=== PATIENT | male | born 1955 | race Caucasian/White ===

== ENCOUNTER 2016-09-21 16:44 | Inpatient (IN) | payer OTHER ==
--- NOTE | 2016-09-21 16:48 | EDPHY ---
H & P Time Seen by Provider: 09/21/16 16:41 HPI/ROS: CHIEF COMPLAINT: Unresponsive HISTORY OF PRESENT ILLNESS: This patient is a 60-year-old male who presents emergently to the Emergency Department via EMS after his family was unable to wake him up from sleep this morning. Per his partner at bedside, he was experiencing worsening dyspnea throughout last night, and she had trouble waking him up from sleep. She last spoke to him at 200 when he went outside to smoke a cigarette. When he returned inside, he had a syncopal episode causing him to fall, hitting his posterior scalp on the floor. He has apparently had intermittent syncopal episodes over the past few weeks. Today, he has been sleeping all day, and she has been unable to wake him. He did have recurrent episodes of diarrhea last night and one episode of vomiting today just before EMS arrival. He has no significant pertinent medical history. No anticoagulant use. REVIEW OF SYSTEMS: A 10 point review of systems was performed and is negative with the exception of the elements mentioned in the history of present illness. ROS and history obtained from the patient's partner at bedside. The patient is not able to provide history secondary to his unresponsive condition. * Source: Family, EMS - Medical/Surgical History PMH: Psoriasis. - Social History Smoking Status: Current every day smoker Additional Social History: Smokes tobacco. Alcohol abuse. Pattie, patient's partner of 32 years, at bedside. - Physical Exam Exam: General: The patient is breathing on his own and protecting his airway. He exhibits extensor posturing with painful stimuli or sternal rub. [place] Coma Score is 4. Head: Normocephalic/atraumatic. No Boggs's sign. No raccoon eyes. Neck: Trachea is midline. Eyes: Pupillary asymmetry; left pupil is ovoid in shape, 4 mm, and larger than right pupil which is round and 3 mm. Neither are reactive. No subconjunctival hemorrhage. Ears nose and throat: No hemotympanum. Nares are patent and without clotted nasal blood. No apparent dental injury or malocclusion. Airway is patent. Lungs: No crepitus. Breath sounds are equal and audible bilaterally. No wheezes , rales, or rhonchi. Cardiac: Heart has regular rate and rhythm without murmur, rub, or gallop. Abdomen: Soft, nondistended. Bowel sounds are present. Genital: No blood at the urethral meatus. Rectal: Blood on rectal thermometer. Temperature 35.1. Skin: No ecchymosis. Healing abrasions bilaterally to both anterior lower extremities. Skin is warm and dry. Psoriatic plaques on his scalp. Extremities: Pelvis is stable. Pulses: 2+ femoral and dorsalis pedis pulses bilaterally. Neuro: GCS 4. Positive gag reflex. Pupils as above. No gaze deviation. No eye opening. No verbalization. Extensor posturing with sternal rub. Constitutional: Initial Vital Signs Heart Rate 106 H 09/21/16 16:44 Respiratory Rate 14 09/21/16 16:44 Blood Pressure 120/98 H 09/21/16 16:44 O2 Sat (%) 99 09/21/16 16:44 O2 Delivery Mode Ventilator O2 (L/minute) 4 Allergies/Adverse Reactions: ibuprofen Allergy (Severe, Verified 06/19/13 16:12) Itching Home Medications: Medication Instructions Recorded Aspirin [Aspirin 325 mg (OTC)] 325 mg PO AD PRN 06/19/13 Multivitamins [Tab-A-Trevin] 1 each PO DAILY 06/19/13 Oxycodone Ir [Oxy Ir 5 mg (RX)] 3 tab PO Q3H PRN 06/19/13 Naproxen Sodium [Aleve] 220 mg PO BID PRN 06/21/13 Medical Decision Making - Diagnostics Imaging Results: Imaging Impressions Cervical Spine CT 09/21/16 16:54 Impression: No acute posttraumatic abnormality identified. Final concordant results called to Dr. Radha Riley at 6:08 PM Final results are concordant with the initial interpretation. General information for patients regarding this examination can be found at [email or web address]. If you have questions or comments about this report, please contact me at [phone] (hospital) or [phone] (cell). Chest X-Ray 09/21/16 16:54 Impression: Chest negative for acute posttraumatic sequela. Head CT 09/21/16 16:54 Impression: Bilateral parenchymal subarachnoid and subdural hematomas. Final results 5:18 PM are concordant with the initial interpretation given to Radha Riley with the patient just leaving the CT table at 5:05 pm. General information for patients regarding this examination can be found at [email or web address]. If you have questions or comments about this report, please contact me at [phone] (hospital) or [phone] (cell). Abdomen CT 09/21/16 17:14 Impression: No acute posttraumatic abnormality identified. 2. CT Scan of the Abdomen and Pelvis (With Contrast, extended study) , 5:57 PM Clinical Indications: Trauma. Technique: 90 mL of Isovue 300 were given intravenously by machine power injection. Multidetector helical CT imaging was performed from the diaphragm to the symphysis pubis or in the arterial phase and then during a delayed phase to assess for hemorrhage. Dose reduction techniques were utilized. Findings: Abdomen: There is no NG tube in the stomach. There is diffuse fatty infiltration of the liver. The liver and spleen are normal in size without evidence of laceration or subcapsular hematoma formation. The gallbladder and pancreas look normal. The kidneys do not show evidence for laceration, cortical contusion, or obstruction. There is no free air or free fluid. Pelvis: There is a Turner catheter in the urinary bladder. The urinary bladder is otherwise unremarkable. No free fluid in the pelvis. Bowel loops are normal. Bone window evaluation: No acute fracture is identified. There is diffuse sclerosis of the right femoral head with early central collapse, consistent with ischemic necrosis. There is sclerosis upper left femoral head, without collapse. There is bilateral L5 spondylolysis with mild spondylolisthesis and severe L5-S1 disk space degeneration. Impression: No acute posttraumatic abnormality identified in the abdomen or pelvis. Results of all studies called to Dr. Garcia could been at 6:17 PM. Final results are concordant with the preliminary interpretation. General information for patients regarding this examination can be found at [email or web address]. If you have questions or comments about this report, please contact me at [phone] (hospital) or [phone] (cell). Chest CT 09/21/16 17:14 Impression: No acute posttraumatic abnormality identified. 2. CT Scan of the Abdomen and Pelvis (With Contrast, extended study) , 5:57 PM Clinical Indications: Trauma. Technique: 90 mL of Isovue 300 were given intravenously by machine power injection. Multidetector helical CT imaging was performed from the diaphragm to the symphysis pubis or in the arterial phase and then during a delayed phase to assess for hemorrhage. Dose reduction techniques were utilized. Findings: Abdomen: There is no NG tube in the stomach. There is diffuse fatty infiltration of the liver. The liver and spleen are normal in size without evidence of laceration or subcapsular hematoma formation. The gallbladder and pancreas look normal. The kidneys do not show evidence for laceration, cortical contusion, or obstruction. There is no free air or free fluid. Pelvis: There is a Turner catheter in the urinary bladder. The urinary bladder is otherwise unremarkable. No free fluid in the pelvis. Bowel loops are normal. Bone window evaluation: No acute fracture is identified. There is diffuse sclerosis of the right femoral head with early central collapse, consistent with ischemic necrosis. There is sclerosis upper left femoral head, without collapse. There is bilateral L5 spondylolysis with mild spondylolisthesis and severe L5-S1 disk space degeneration. Impression: No acute posttraumatic abnormality identified in the abdomen or pelvis. Results of all studies called to Dr. Garcia could been at 6:17 PM. Final results are concordant with the preliminary interpretation. General information for patients regarding this examination can be found at [email or web address]. If you have questions or comments about this report, please contact me at [phone] (hospital) or [phone] (cell). Chest X-Ray 09/21/16 17:20 Impression: Excellent position of ET tube and NG tube. Procedures: Procedure: Rapid sequence intubation. Indication for the procedure was head trauma with GCS of 4. The patient was preoxygenated with 100% oxygen by face mask. The patient was given the following IV medications: 30mg etomidate and 100mg succinylcholine. The patient was orally endotracheally intubated under direct visualization with a 7.5 ETT. In line stabilization was performed during the procedure. Tracheal intubation was confirmed with misting on the tube; breath sounds were auscultated equally bilaterally; appropriate color change with [place] CO2 detector. Chest X-ray shows ETT in good position. The procedure was performed by myself, Dr. Riley. ED Course/Re-evaluation: 164: Respiratory therapist at bedside. 164: Took EMS report at bedside: Sinus rhythm on monitor, protecting his airway. No improvement with administration of Narcan. 1645: Initial vitals obtained: BP 120/98, tachycardic at 106, RR 14, O2 sat 99% on NC oxygen. Full Trauma Activation called by myself at 1645. This patient is a 61-year-old alcoholic male who presents emergently via EMS after family was unable to wake him up today. He apparently had a syncopal episode with collapse or a fall last night. At time of arrival, he is protecting his airway and has an appropriate gag reflex. He has extensor posturing to sternal rub. Narcan did not improve his condition in transport. Pupils are asymmetrical. There is no visible trauma to his head. Will proceed emergently with CT of the head. Patient will likely require intubation, pending CT results. His partner, Pattie, is aware that he will likely require intubation, given his lack of responsiveness. 1646: IV established. i-Stat obtained and reveals hemoglobin decreased at 7.8 and hematocrit decreased at 23. Chemistries are unremarkable. 1658: CT of the head reviewed by myself and discussed with Dr. Glover reveals subdural, subarachnoid, and intraparenchymal bleeding. 1700: Dr. Meeks, trauma surgery, at bedside. He reports some improvement to the patient's neurological exam and plans to proceed with admission to the ICU. Hemoglobin 5.9. 1700: Repeat vitals obtained: BP 124/82, tachycardic at 105. O2 sat 100% on NC. 1702: Consultation with Dr. Saleem, neurosurgery. 1705: Intubation performed by myself with the support of RT without complication (see procedure note). Will administer propofol for continued sedation. 1717: Dr. Saleem has reviewed the scan and consulted at bedside. 1720: Turner catheter placed. Labs reviewed and confirm acute anemia with hemoglobin level of 5.9. Will proceed with additional CT imaging of the abdomen and pelvis. I discussed the patient's condition and CT results with his partner, Pattie. She appears to understand the gravity of his condition. The patient will be transferred to the ICU. No further injuries discovered on CT of the cervical spine, chest, and abdomen/pelvis. Critical Care Time: Critical care time spent by me, Dr. Riley, exclusively with this patient was 40 minutes, exclusive of PA time and exclusive of procedures. The neurologic and respiratory systems were at risk. I emergently evaluated the patient; upgraded the patient's case to FTA; ordered emergent imaging and reviewed results myself; consulted with neurosurgery and trauma surgery; performed intubation; serially evaluated the patient prior to transfer to ICU in order to prevent worsening of the patient's condition. He was at risk of neurologic deterioration, . - Data Points Laboratory Results: Laboratory Results 09/21/16 16:20 09/21/16 16:20 09/21/16 09/21/16 09/21/16 17:00 16:46 16:20 WBC RBC Hgb POC Hgb 7.8 gm/dL L gm/dL (13.7-17.5) Hct POC Hct 23 % L % (40-51) MCV MCH MCHC RDW Plt Count MPV Neut % (Auto) Lymph % (Auto) [place] % (Auto) Eos % (Auto) Baso % (Auto) Nucleat RBC Rel Count Absolute Neuts (auto) Absolute Lymphs (auto) Absolute Monos (auto) Absolute Eos (auto) Absolute Basos (auto) Absolute Nucleated RBC Immature Gran % Immature Gran # Platelet Estimate Polychromasia Hypochromasia Microcytic Cells Target Cells Elliptocytes Schistocytes Smear Review By PT INR APTT POC Sodium 135 mEq/L mEq/L (134-144) Sodium 135 mEq/L mEq/L (134-144) POC Potassium 3.4 mEq/L mEq/L (3.3-5.0) Potassium 3.7 mEq/L mEq/L (3.5-5.2) POC Chloride 97 mEq/L mEq/L (97-110) Chloride 96 mEq/L L mEq/L (97-110) Carbon Dioxide 13 mEq/l L mEq/l (22-31) Anion Gap 26 mEq/L H mEq/L (8-16) POC BUN 8 mg/dL mg/dL (7-23) BUN 9 mg/dL mg/dL (7-23) Creatinine 1.1 mg/dL mg/dL (0.7-1.3) POC Creatinine 1.1 mg/dL mg/dL (0.7-1.3) Estimated GFR > 60 Glucose 215 mg/dL H mg/dL (70-100) POC Glucose 218 mg/dL H mg/dL (70-100) Calcium 9.8 mg/dL mg/dL (8.5-10.4) Salicylates < 1.0 mg/dL L mg/dL (2.0-20.0) Acetaminophen < 10 mcg/mL L mcg/mL (10.0-30.0) Ethyl Alcohol 33 mg/dL H mg/dL (0-10) Patient ABO/Rh O POSITIVE Antibody Screen NEGATIVE Crossmatch IS Only See Detail 09/21/16 09/21/16 16:20 16:20 WBC 19.44 10^3/uL H 10^3/uL (3.80-9.50) RBC 2.51 10^6/uL L 10^6/uL (4.40-6.38) Hgb 5.9 g/dL L* g/dL (13.7-17.5) POC Hgb Hct 19.8 % L % (40.0-51.0) POC Hct MCV 78.9 fL L fL (81.5-99.8) MCH 23.5 pg L pg (27.9-34.1) MCHC 29.8 g/dL L g/dL (32.4-36.7) RDW 21.4 % H % (11.5-15.2) Plt Count 333 10^3/uL 10^3/uL (150-400) MPV 10.2 fL fL (8.7-11.7) Neut % (Auto) Not Reported Lymph % (Auto) Not Reported [place] % (Auto) Not Reported Eos % (Auto) Not Reported Baso % (Auto) Not Reported Nucleat RBC Rel Count 0.2 % % (0.0-0.2) Absolute Neuts (auto) Not Reported Absolute Lymphs (auto) Not Reported Absolute Monos (auto) Not Reported Absolute Eos (auto) Not Reported Absolute Basos (auto) Not Reported Absolute Nucleated RBC 0.03 10^3/uL H 10^3/uL (0-0.01) Immature Gran % Not Reported Immature Gran # Not Reported Platelet Estimate ADEQUATE (ADEQ) Polychromasia 2+ H Hypochromasia 1+ H Microcytic Cells 2+ H Target Cells 1+ H Elliptocytes 1+ H Schistocytes 1+ H Smear Review By Pending PT 14.8 SEC SEC (12.0-15.0) INR 1.16 (0.83-1.16) APTT 42.3 SEC H SEC (23.0-38.0) POC Sodium Sodium POC Potassium Potassium POC Chloride Chloride Carbon Dioxide Anion Gap POC BUN BUN Creatinine POC Creatinine Estimated GFR Glucose POC Glucose Calcium Salicylates Acetaminophen Ethyl Alcohol Patient ABO/Rh Antibody Screen Crossmatch IS Only Medications Given: Discontinued Medications Etomidate (Etomidate) 30 mg IVP EDNOW ONE Stop: 09/21/16 17:06 Last Admin: 09/21/16 17:07 Dose: 30 mg Succinylcholine Chloride (Quelicin) 100 mg IVP EDNOW ONE Stop: 09/21/16 17:06 Last Admin: 09/21/16 17:07 Dose: 100 mg Point of Care Test Results: 09/21/16 16:46 POC Sodium 135 POC Potassium 3.4 POC Chloride 97 POC BUN 8 POC Creatinine 1.1 POC Glucose 218 H Departure - Departure Disposition: [facility] Inpatient Acute Clinical Impression: Subdural hemorrhage, Intraparenchymal hemorrhage of brain Condition: Critical Report Scribed for: Radha Riley Report Scribed by: Nela Perez Date of Report: 09/21/16 Time of Report: 16:41 Physician Review and Approval Statement: 09/21/16 16:41 Portions of this note were transcribed by the medical secretary teacher. I, Dr. Radha Riley, personally performed the history, physical exam, and medical decision- making; and confirmed the accuracy of the information in the transcribed note.
--- NOTE | 2016-09-21 17:04 | CPEKG ---
Heart Rate: 102 RR Interval: 588 P-R Interval: 143 QRSD Interval: 92 QT Interval: 376 QTC Interval: 490 P [place]: 69 QRS [place]: 75 T Wave [place]: 44 EKG Severity - ABNORMAL ECG - EKG Impression: SINUS TACHYCARDIA EKG Impression: PAIRED VENTRICULAR PREMATURE COMPLEXES EKG Impression: ABERRANT COMPLEX, POSSIBLY SUPRAVENTRICULAR EKG Impression: BORDERLINE R WAVE PROGRESSION, ANTERIOR LEADS EKG Impression: BORDERLINE PROLONGED QT INTERVAL Electronically Signed By: Radha Riley 21-Sep-2016 22:31:13
[2016-09-21] MEDS ORDERED: SUCCINYLCHOLINE CHLORIDE 200 MG/10 ML VIAL IVP ONE (17:05)
[2016-09-21] MEDS ORDERED: ETOMIDATE 20 MG/10 ML VIAL IVP ONE (17:05)
[2016-09-21 17:08] LABS: ABSOLUTE NRBC COUNT 0.03 10^3/uL (0-0.01); ADD DIFF? YES; ADD MORPH? YES; ADD SCAN? NO; ATYPICAL LYMPHOCYTE FLAG 0 (0-99); FRAGMENT RBC FLAG 40 (0-99); HEMATOCRIT 19.8 % (40.0-51.0); LEFT SHIFT FLG 20 (0-99); LIPEMIA HEMOLYSIS FLAG 70 (0-99); MEAN CELL HEMOGLOBIN 23.5 pg (27.9-34.1); MEAN CELL HEMOGLOBIN CONCENTR. 29.8 g/dL (32.4-36.7); MEAN CELL VOLUME 78.9 fL (81.5-99.8); MEAN PLATELET VOLUME 10.2 fL (8.7-11.7); NRBC-AUTO% 0.2 % (0.0-0.2); PLATELET CLUMPS FLAG 20 (0-99); PLATELET COUNT 333 10^3/uL (150-400); RED BLOOD CELL COUNT 2.51 10^6/uL (4.40-6.38)
[2016-09-21 17:10] LABS: RED CELL DISTRIBUTION WIDTH 21.4 % (11.5-15.2)
[2016-09-21] MEDS ORDERED: PROPOFOL/EMULSION 1,000 MG/100 ML BOTTLE IV ONE (17:11)
[2016-09-21 17:12] LABS: HEMOGLOBIN 5.9 g/dL (13.7-17.5)
[2016-09-21 17:14] LABS: ANION GAP 26 mEq/L (8-16); CALCIUM 9.8 mg/dL (8.5-10.4); CARBON DIOXIDE 13 mEq/l (22-31); CHLORIDE 96 mEq/L (97-110); CREATININE 1.1 mg/dL (0.7-1.3); ETHANOL SERUM 33 mg/dL (0-10); GLOMERULAR FILTRATION RATE > 60; GLUCOSE 215 mg/dL (70-100); POTASSIUM 3.7 mEq/L (3.5-5.2); SALICYLATE < 1.0 mg/dL (2.0-20.0); SODIUM 135 mEq/L (134-144)
[2016-09-21 17:18] LABS: INR 1.16 (0.83-1.16); PROTIME(PATIENT) 14.8 SEC (12.0-15.0)
[2016-09-21 17:19] LABS: APTT 42.3 SEC (23.0-38.0)
[2016-09-21] MEDS ORDERED: PROPOFOL/EMULSION 100 ML IV SCH (17:30)
[2016-09-21] MEDS ORDERED: IOPAMIDOL (ISOVUE-300) 100 ML BTL ONE (17:31)
[2016-09-21] MEDS ORDERED: NALOXONE HCL 0.4 MG/ML INJ IVP PRN (17:33)
[2016-09-21 17:34] LABS: ELLIPTOCYTES 1+; HYPOCHROMIA 1+; MICROCYTES 2+; PLATELET ESTIMATE ADEQUATE (ADEQ); POLYCHROMASIA 2+; SCHISTOCYTES 1+; TARGET CELLS 1+
[2016-09-21] MEDS ORDERED: ETOMIDATE 40 MG/20 ML INJ ONE (17:34)
[2016-09-21] MEDS ORDERED: SUCCINYLCHOLINE CHLORIDE*ANESTHESIA ONLY*200 MG/10 ML SYR IVP ONE (17:35)
--- NOTE | 2016-09-21 17:50 | PDCONSULT ---
Material Assistant Note: Trauma Surgery Admission Note 61 y/o male brought in by EMR for LOC. His girlfriend found him down after he went outside at 0200 and presumably fell. He was unconscious all day. He remained in coma upon arrival with a GCS of 4, but was breathing spontaneously. Dr. Riley saw the patient and a full trauma activation was called. A STAT CT scan of the head showed significant ICH and he was subsequently intubated by Dr. Riley. Neurosurgical consultation was requested. Upon my evaluation the patient was recently intubated and paralyzed. PMH: heavy EtOH use/tobacco use all: Ibuprofen SH: SO Pattie here in the waiting area/she had been together with Gerhard for the past 42 years he is apparently estranged from his family FH: unobtainable ROS: unobtainable PE: 132/13-986-84-35.1 Secondary Survey/exam 30 minutes after paralytics administered Gen:chronically ill appearing male/intubated and unresponsive HEENT:P4/3NRRL, trachea midline w/out crepitance, no cervical spine stepoff chronic appearing skin ulcer left ear and scalp in varying phase of healing ETT secured Lungs: CTA with equal breath sounds Thorax: stable to anterior and lateral compression CVS: RRR-tachycardia/no murmurs appreciated Abd: soft/liver edge palpable 3 cm below costal margin, +BS back: no bruising or deformity pelvis: stable to anterior and lateral compression rectal: + sphincter tone/no mayra heme : ramirez cath neuro: decerebrate response to pain/ + gag reflex/spontaneous ventilation Hgb 5.9 wbc 19.4 plat 333K Na+ 135 K+ 3.4 Cl 96 C02 26 creat 1.1 gluc 215 INR 1.[address] head: bilateral SDH/SAH/left parietal fracture CT c-spine: DDD/no acute fracture CT chest/abd/pelvis: no internal signs of hemorrhage or organ injury/mild hepatomegaly/no ascites/no fractures/no hemopneumothorax NG and Ramirez in appropriate position CXR ETT in good position Imp: 1.Significant intracranial hemorrhage presumably due to unwitnessed fall/ Discussed with Dr. Saleem who does not feel that he has a survivable injury and she did not recommend surgery 2.Anemia-no evidence of acute traumatic blood loss/anemia of chronic disease? 3.Hx of EtOH use (heavy) with hepatomegaly, clinically Child's A Rec: continue ventilatory support and consider extubation when spontaneous ventilation returns/supportive and comfort care consider early discussion regarding organ donation/transfusion to maintain Hgb > 8.0 S MD Jeanna, FACS
--- NOTE | 2016-09-21 18:00 | PDCONSULT ---
Diamond Blender Note: dictated [id number]
--- NOTE | 2016-09-21 18:41 | GCON ---
[f rep st] CONSULTATION NEUROSURGICAL CONSULTATION, EMERGENCY DEPARTMENT CHIEF COMPLAINT: Altered mental status. HISTORY OF PRESENT ILLNESS: This is a 61-year-old male with a history of chronic alcoholic cirrhosis, who had a fall at approximately 2:00 a.m. He was with his long-term significant other, and she states that he was confused but conversant until approximately 3:30 a.m. this morning, when he became nonconversant and was unarousable. She stayed with him throughout the day, in which case she said there were several times when he had Kussmaul-type breathing or what she describes as ragged breathing, but was completely nonconversant, unresponsive, and was not answering questions. When she became significantly concerned, she called EMS, and he was brought to the emergency department where he was found to have unequal pupils. He was posturing and was intubated emergently. CT of the head found multiple hemorrhages including intracranial hemorrhage, brainstem hemorrhage, traumatic subarachnoid hemorrhage , subdural hematoma, and a significant amount of edema. Neurosurgery was consulted. At this point in time, the patient is obtunded, intubated, and paralyzed, and I am unable to obtain any information from the patient. All information comes from the chart and his significant other. PAST MEDICAL HISTORY: Includes alcoholic cirrhosis. PAST SURGICAL HISTORY: There is no record of a surgical history. SOCIAL HISTORY: He does drink alcohol. There is no record of any other illicit drugs. ALLERGIES: To ibuprofen. HOME MEDICATIONS: Included oxycodone, naproxen, multivitamin, and an aspirin. FAMILY HISTORY: Unobtainable. The patient is obtunded. REVIEW OF SYSTEMS: Unobtainable. The patient is obtunded. PHYSICAL EXAMINATION: VITAL SIGNS: Blood pressure is 132/88, heart rate is 103 , respiratory rate is 20, satting 100% on the ventilator, and temp is 35.1 degrees Celsius. GENERAL: On physical exam, he is intubated and paralyzed, although he was reportedly extensor posturing with Kussmaul respirations. EYES: Pupils are 2 mm on the left, 3-4 mm on the right, and fixed. LABORATORY DATA: White blood cell count is 19.44, hemoglobin is 5.9, hematocrit is 19.8, and platelets are 333. PTT is 14.8. INR is 1.16. PTT is 42.3. Sodium 135, potassium 3.4, chloride 97, BUN 9, creatinine 1.1, glucose 218. Salicylates are less than 1. Opiate screen is negative. Acetaminophen is less than 10. All other drugs of abuse were negative. Ethyl alcohol was 33. CT of the head reveals central cerebral edema, with obliteration of the ambient cistern and third ventricle, bilateral compression of the lateral ventricles, bilateral subarachnoid and subdural hemorrhage, and right frontal, left parietal , and parenchymal hemorrhages. There is a small hemorrhage in the posterior mid brain. There is no definite intraventricular hemorrhage. Calcification of the right choroid plexus is distorted due to mass effect on the lateral ventricle. There is slight right to left shift in the anterior septum pellucidum. There is a nondisplaced linear fracture coursing through the left mid parietal lobe. There is no associated epidural hematoma. The right subdural measures approximately 3-4 mm in the parietal region. The fourth ventricle remains patent. IMPRESSION AND PLAN: This is a 61-year-old alcoholic cirrhotic, with midbrain hemorrhage, intraparenchymal hemorrhage, bilateral subdural hematomas, traumatic subarachnoid hemorrhage, and a skull fracture, who has been unresponsive for at least 15 hours and has a neurologic exam that portends a poor prognosis. Overall, he has an unsurvivable injury. I had a long discussion with the significant other who is the only family member. She has been his significant other for 42 years, and he has only other estranged family members. She states that they had had multiple conversations and in this instance, she states that he has clearly stated in the past he would not choose to be maintained on life support. At this point in time, given his devastating neurologic injury and his previous wishes, it seems reasonable to institute comfort measures as soon as the paralytic wears off, and she is agreeable to this. At this point in time, no surgical intervention is indicated. No further imaging is indicated. The patient should be made DNR and as soon as the paralytic wears off, should be made comfort measures. This has been communicated to the trauma service. Please call with any questions or concerns. /[id number]/MODL MTDD
[2016-09-21] MEDS ORDERED: PROTOCOL CALCIUM 1 DOSE IV PRN (19:41)
[2016-09-21] MEDS ORDERED: PROTOCOL POTASSIUM 1 DOSE MISC PRN ×2 (19:41)
[2016-09-21] MEDS ORDERED: PROTOCOL MAGNESIUM 1 DOSE IV PRN (19:41)
[2016-09-21] MEDS ORDERED: PROTOCOL K PHOSPHATE 1 DOSE IV PRN (19:41)
[2016-09-21] MEDS ORDERED: POTASSIUM Cl (KCl) 20 MEQ/50 ML BAG IV ONE (19:42)
[2016-09-21] MEDS ORDERED: MAGNESIUM SULF 1 GM/DEXTROSE 100 ML BAG IV ONE (19:43)
[2016-09-21] MEDS ORDERED: NS 1,000 ML IV SCH (19:45)
[2016-09-21 19:50] LABS: BASE EXCESS -3.8 mEq/L (-2.5-2.5); BICARBONATE 20 mEq/L (22-26); MEASURED OXYGEN SATURATION 98 % (92-95); PCO2 32 mmHg (34-38); PO2 96 mmHg (65-75); TCO2 21 mEq/L (23-27)
[2016-09-21 19:51] LABS: ASSIST CONTROL YES; END TIDAL CO2 28; O2 CONCENTRATIION 40 % (0-100); P/F RATIO 240 RATIO
[2016-09-21 19:52] LABS: TOTAL RATE 20
[2016-09-21] MEDS: POTASSIUM Cl (KCl) 100 ML IV SCH ×3 (20:26→23:27)
[2016-09-21] MEDS ORDERED: FAMOTIDINE 20 MG/NACL 50 ML IV SCH (21:00)
[2016-09-21 21:27] LABS: ANION GAP 11 mEq/L (8-16); CALCIUM 8.7 mg/dL (8.5-10.4); CARBON DIOXIDE 21 mEq/l (22-31); CHLORIDE 106 mEq/L (97-110); CREATININE 0.9 mg/dL (0.7-1.3); GLOMERULAR FILTRATION RATE > 60; GLUCOSE 130 mg/dL (70-100); POTASSIUM 4.7 mEq/L (3.5-5.2); SODIUM 138 mEq/L (134-144)
--- NOTE | 2016-09-21 22:03 | SOAPPROG ---
Downtime Inpatient MD Late Entry SOAP Note: Gerhard remains hemodynamically stable and has received 2 units of PRBC with a rise in his Hgb to 7.9 gm/dl MICHAEL was contacted and I spoke with Cinthia and Lila from [facility]. He is not a great candidate from a medical viewpoint with unexplained anemia and probable liver disease. His common law , Pattie, would like to withdraw care as soon as possible and progress to comfort care only. Hospice consultation was requested.
[2016-09-21 22:04] LABS: COLOR PALE YELLOW; LEUKOCYTE ESTERASE,URINE NEGATIVE (NEGATIVE); NITRITE,URINE NEGATIVE (NEGATIVE)
[2016-09-21 22:10] LABS: MUCUS TRACE /lpf (NONE-1+)
[2016-09-21] MEDS ORDERED: ACETAMINOPHEN 325 MG TAB ONE (22:32)
[2016-09-22 10:42] VITALS: O2SAT 99
[2016-09-22 11:51] VITALS: BP 65/39; PULSE 98; RESP 16; TEMP 98.1
[2016-09-22] MEDS ORDERED: LORazepam 2 MG/ML INJ IVP PRN (13:10)
[2016-09-22] MEDS ORDERED: GLYCOPYRROLATE 0.2 MG/1 ML VIAL IVP PRN (13:10)
--- NOTE | 2016-09-22 13:11 | TRAUMAPN ---
Assessment/Plan: 61 year old found down with non survivable head trauma [facility] notified and not a good candidate Comfort care Discontinue c collar Awaiting to determine proxy prior to extubation Subjective: unresponsive Objective: Vital Signs Temp Pulse Resp BP Pulse Ox 36.7 C 98 16 65/39 L 99 09/22/16 11:47 09/22/16 11:47 09/22/16 11:47 09/22/16 11:47 09/22/16 11:47 Laboratory Results 09/21/16 21:00 09/21/16 21:00 09/21/16 09/22/16 09/23/16 05:59 05:59 05:59 Intake Total 4640 Output Total 4235 30 Balance 405 -30 PT 14.8 SEC (12.0-15.0) 09/21/16 16:20 INR 1.16 (0.83-1.16) 09/21/16 16:20 Physical Exam - Physical Exam General Appearance: unresponsive EENT: ET tube, other (no cough, no gag) Respiratory: lungs clear, normal breath sounds Cardiac/Chest: regular rate, rhythm Abdomen: soft Extremities: other (does not withdraw to pain) Neuro/Psych: No alert
--- NOTE | 2016-09-22 14:55 | GCON ---
[f rep st] CONSULTATION INTENSIVE CARE UNIT CONSULTATION DATE OF CONSULTATION: 09/22/2016 REASON FOR CONSULTATION: Severe closed head injury. HISTORY: The patient is a 61-year-old gentleman who was brought to the hospital by the paramedics yesterday afternoon with altered mental status. Apparently at approximately 0200, he fell and struck his head. His significant other got him into bed. However, throughout the day, he did not wake up. He did have at least 1 episode of emesis. He did not stop breathing. The paramedics were called and transported him to the emergency department where workup revealed a severe head injury on CT scan with subarachnoid and subdural blood, intraparenchymal bleed in multiple locations, edema and compression of the ventricles, etc. He was seen by Neurosurgery as well as Trauma Surgery. The injury is felt to be unsurvivable. His significant other requested that, in light of the current situation, he would not want prolonged support, per his wishes he expressed to her previously. Because they were not , despite being together for many years and because of the current situation and injury, a proxy has been appointed. The proxy is a medical provider in our hospital and knows both the patient and his significant other well. She requests that supportive care be withdrawn at this time and that comfort measures only be provided. PAST MEDICAL HISTORY: Apparently remarkable for substance abuse with alcohol and tobacco. Blood alcohol on admission was 33. SOCIAL HISTORY: Lives with his significant other times many years. Tobacco and alcohol are positive. FAMILY HISTORY: Unobtainable. REVIEW OF SYSTEMS: Unobtainable. PHYSICAL EXAMINATION: GENERAL: Reveals a well kept man who is unresponsive. When taken off the ventilator long enough for saturations to drop from 100% to 80%, there is no evidence of spontaneous respirations, however, this was not a formal apnea test. The patient was over breathing the ventilator initially. He is hypotensive with blood pressure approximately 70/50, tachycardic with sinus rhythm on the monitor. On 40%, saturations are 100%. He is afebrile. HEENT: Remarkable for an oral endotracheal tube and orogastric tube in place. The eyes are somewhat dysconjugate, the pupils appear relatively symmetrical, but do not respond to light. CHEST: Clear. HEART: Regular in rate and rhythm. ABDOMEN: Soft. Bowel sounds are diminished. EXTREMITIES: Unremarkable for edema. The patient is flaccid. He does not respond to commands or stimulation, does not move his extremities to stimulation. DATABASE: Multiple CT scans and radiologic studies were done on admission, without significant findings except for the CT scan of the head. Cervical spine CT scan showed no obvious abnormalities. Laboratory on admission showed white blood cell count of 19,000, hematocrit of approximately 20 and normal platelets. PTT was mildly elevated. Arterial blood gas post intubation showed a pH of 7.41, pCO2 of 32, and a PO2 of 96 on 40% FiO2. Chemistries have been normal with exception of elevated glucoses to as high as 218 and decreased CO2, most recently 21. Tox screen was negative on admission with the exception of the blood alcohol of 33. ASSESSMENT: Status post apparent fall with severe and un-survivable [employer] injuries as described above. The patient's significant other as well as the patient's proxy wished to have supportive care withdrawn and to go to comfort care only. In this situation switching to comfort care only would be totally appropriate. PLAN AND RECOMMENDATIONS: The patient will be extubated and placed on comfort measures as needed including morphine, Ativan, and glycopyrrolate. /[id number]/MODL and [id number], 09/22/16 1332 [facility]
--- NOTE | 2016-09-22 20:46 | GDS ---
[f rep st] DISCHARGE SUMMARY DATE OF ADMISSION: September 21, 2016. DATE OF : September 22, 2016. REASON FOR ADMISSION: The patient is a 61-year-old who was brought in for loss of consciousness. Renée link initially had gone outside at 2 a.m. on September 21 and may have fallen. He was unconscious all day. When he was brought in, a full trauma activation was called. A CT scan of the head showed intracer ebral hemorrhage. Neurosurgery evaluated him and due to midbrain hemorrhage, intraparenchymal hemor rhage, bilateral subdural hemorrhage, traumatic subarachnoid hemorrhage, who has been unresponsive f or at least 15 hours, and neurologic exam with a poor prognosis, they deemed he has an unsurvivable injury. OTHER PERTINENT DIAGNOSES: Alcohol abuse. HOSPITAL COURSE: He was admitted, and [facility] was contacted initially resuscitated in the ev ent his organs would be able to be utilized. He was not a good candidate. On September 22, he was made comfort care and ultimately was extubated. He quickly after extubation. CAUSE OF : Traumatic brain injury. /[id number]/MODL
== END 2016-09-22 13:52 | disposition expired | DRG 84 ==
LOC: EDUNIT# → F2N 18:32
PROVIDERS: ADMIT Surgery; ATTEND Surgery
PROC: 0BH17EZ Insertion of Endotracheal Airway into Trachea, Via Natural or Artificial Opening (ICD-10-PCS; principal; 2016-09-21)
PROC: 30233N1 Transfusion of Nonautologous Red Blood Cells into Peripheral Vein, Percutaneous Approach (ICD-10-PCS; 2016-09-21)
DX: S06.5X9A Traumatic subdural hemorrhage with loss of consciousness of unspecified duration, initial encounter (principal); S02.0XXA Fracture of vault of skull, initial encounter for closed fracture; W18.39XA Other fall on same level, initial encounter; Y92.018 Other place in single-family (private) house as the place of occurrence of the external cause; Z72.0 Tobacco use; F10.10 Alcohol abuse, uncomplicated; K70.30 Alcoholic cirrhosis of liver without ascites; D64.9 Anemia, unspecified
CPT/HCPCS: 80305; 82947-QW; 96374; G0480; J0330; J2704; J3475; P9016; Q9967